=== PATIENT | male | born 1935 | race Caucasian/White ===

== ENCOUNTER 2017-12-26 10:46 | Emergency (ER) | payer MEDICARE, OTHER ==
[~2017-12-26] VITALS: Ht 170.2 cm; Wt 79.4 kg
[~2017-12-26 10:46] MED LIST: CADUET 10 MG-41 EACH PO; FAMOTIDINE20 MG PO; LISINOPRIL40 MG PO; METOPROLOL TART50 MG PO; PLAVIX300 MG PO; SEROQUEL100 MG PO; TEMAZEPAM15 MG PO; VITAMIN D31000 UNI1 PO
[2017-12-26] MEDS ORDERED: SODIUM CHLORIDE 0.9% 1000ML 1,000 ML IV STA (11:54)
[2017-12-26 13:22] LABS: BASOPHILS % 0.5 % (0.0-1.0); EOSINOPHILS # (AUTO) 0.1 (0.0-0.4); EOSINOPHILS % 1.1 % (0.0-6.0); HEMATOCRIT 42.9 % (38.2-49.6); HEMOGLOBIN 14.2 g/dL (14.0-18.0); LYMPHOCYTES # (AUTO) 1.5 (1.0-3.2); LYMPHOCYTES % 19.1 % (18.0-39.1); MEAN CORPUSCULAR HEMOGLOBIN 32.6 pg (28-32); MEAN CORPUSCULAR HGB CONC 33.1 g/dL (31-35); MEAN CORPUSCULAR VOLUME 98.6 fL (81-99); MONOCYTES # (AUTO) 0.5 (0.2-0.8); MONOCYTES % 6.9 % (4.4-11.3); NEUTROPHILS # (AUTO) 5.6 (2.1-6.9); NEUTROPHILS % 71.8 % (38.7-80.0); PLATELET COUNT 182 x10e3/uL (140-360); RED BLOOD COUNT 4.35 x10e6/uL (4.3-5.7); RED CELL DISTRIBUTION WIDTH 14.1 % (11.7-14.4)
[2017-12-26 13:36] LABS: ANION GAP 16.3 mmol/L (8-16); CALCIUM 10.2 mg/dL (8.4-10.2); CREATININE, SERUM 1.3 mg/dL (0.72-1.25); POTASSIUM 4.3 mmol/L (3.5-5.1)
[2017-12-26 13:41] LABS: BILIRUBIN,URINE NEGATIVE (NEGATIVE); CLARITY,URINE CLEAR (CLEAR); COLOR,URINE YELLOW (YELLOW); KETONES,URINE NEGATIVE (NEGATIVE); LEUKOCYTE ESTERASE ,URINE NEGATIVE (NEGATIVE); NITRITE,URINE NEGATIVE (NEGATIVE); PROTEIN,URINE DIPSTICK NEGATIVE (NEGATIVE); URINE UROBILINOGEN 0.2 mg/dL (0.2 - 1)
--- NOTE | 2017-12-26 13:44 | Diagnostic Imaging Report ---
EXAMINATION: CT of the abdomen and pelvis without contrast. TECHNIQUE: Spiral CT images of the abdomen and pelvis were performed from the lung bases to the lesser trochanters. No intravenous contrast was given per renal stone protocol. Coronal and sagittal reformatted images were obtained. COMPARISON: CT chest 09/04/2012 CLINICAL HISTORY:Back pain, difficulty urinating, right flank pain DISCUSSION: ABSENCE OF INTRAVENOUS CONTRAST DECREASES SENSITIVITY FOR DETECTION OF FOCAL LESIONS AND VASCULAR PATHOLOGY. ABDOMEN/PELVIS: LOWER THORAX: Stable partially visualized peripherally calcified large left ventricular aneurysm measuring approximately 10.7 x 9.0 cm. Linear opacities in the posterior left lower lobe, likely representing scarring. HEPATOBILIARY: No focal hepatic lesions. No intra or extrahepatic biliary ductal dilation. GALLBLADDER: Multiple radiopaque stones measuring approximately 4-5 mm are noted in the dependent portion of the gallbladder lumen. No wall thickening or pericholecystic fluid. SPLEEN: No splenomegaly. PANCREAS: No focal masses or ductal dilatation. ADRENALS: Slight interval decrease in size of 4.2 x 3.7 cm mass in the left adrenal gland, which contains dystrophic calcifications and scattered foci of macroscopic fat (series 3, image 36). Right adrenal gland unremarkable. KIDNEYS/URETERS: No renal or ureteral calculi, hydronephrosis or obstruction. No significant perinephric stranding. 1.5 cm partially exophytic fluid density simple cyst in the lateral interpolar left kidney (coronal image 59). Cortical scarring in the inferior pole of the left kidney. No other contour abnormalities. PELVIC ORGANS/BLADDER: Bladder is unremarkable. Prostate contains dystrophic calcifications. PERITONEUM/RETROPERITONEUM: No free air or fluid. LYMPH NODES: No intra-abdominal,retroperitoneal, pelvic or inguinal lymphadenopathy. VESSELS: Atherosclerotic calcification of the abdominal aorta, aortic branches and iliac vessels. Focal ectasia of the infrarenal abdominal aorta which measures approximately 2.9 x 2.9 cm (series 3, image 66). Questionable focal dissection in the infrarenal aorta (series 3, image 70). No periaortic hematoma. GI TRACT: No bowel dilation or evidence of obstruction. 2. Chronic inflammatory changes. Descending and sigmoid colon diverticulosis, without diverticulitis. BONES AND SOFT TISSUES: No aggressive lytic lesions. Multilevel degenerative disc changes in the lumbosacral spine, worse at L4-L5, with levoscoliosis. Facet hypertrophy L4-L5 and L5-S1. IMPRESSION: 1. No renal, ureteral or bladder calculi. No hydronephrosis or obstruction. Cortical scarring in the inferior pole of the left kidney. 2. Bladder is unremarkable, without focal lesions or wall thickening. 3. Stable partially visualized peripherally calcified large left ventricular aneurysm. 4. 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 5. Marked atherosclerotic disease of the abdominal aorta with focal ectasia of the infrarenal abdominal aorta and questionable focal dissection in this noncontrast exam. No acute periaortic hematoma is identified.. Signed by: Dr. Benito Hameed M.D. on 12/26/2017 1:40 PM
[2017-12-26 13:54] LABS: EPITHELIAL CELLS,URINE RARE /LPF; RBC,URINE 0-5 /HPF (0-5); WBC,URINE (MAN) 0-5 /HPF (0-5)
== END 2017-12-26 15:16 | disposition home or self-care (01) ==
LOC: ER 10:46
CPT/HCPCS: 36415; 74176; 80048; 81001; 85025; 87086; 99284; J7030

== ENCOUNTER 2018-08-09 11:52 | Observation (INO) | payer MEDICARE, OTHER ==
[~2018-08-09] VITALS: Ht 165.1 cm; Wt 66.0 kg
--- OUTSIDE RECORDS SUMMARY | 2018-08-09 11:55 | XMS REPORT ---
Author Author [facility] [place] Address Unknown Phone Unavailable Care Team Providers Care Day [employer] Youth Supervisor Name Role Phone Qasim GARCIA Unavailable Unavailable Problems This patient has no known problems. Allergies, Adverse Reactions, Alerts This patient has no known allergies or adverse reactions. Medications This patient has no known medications. Results Test Description Test Time Test Comments Text Results Atomic Results Result Comments CT ABDOMEN/PELVIS WO [place] [address] Patient Name: JOANNA NIEVES MR #: [id number] : 1935 Age/Sex: 82/M Req #: [id number] Adm Physician: Ordered by: RICHARD GARCIA MD Report #: [id number] Location: ER Room/Bed: Procedure: [id number] CT/CT ABDOMEN/PELVIS WO Exam Date: 12/26/17 Exam Time: 1214 REPORT STATUS: Signed EXAMINATION: CT of the abdomen and pelvis without contrast. TECHNIQUE: Spiral CT images of the abdomen and pelvis were performed from the lung bases to the lesser trochanters. No intravenous contrast was given per renal stone protocol. Coronal and sagittal reformatted images were obtained. COMPARISON: CT chest 09/04/2012 CLINICAL HISTORY:Back pain, difficulty urinating, right flank pain DISCUSSION: ABSENCE OF INTRAVENOUS CONTRAST DECREASES SENSITIVITY FOR DETECTION OF FOCAL LESIONS AND VASCULAR PATHOLOGY. ABDOMEN/PELVIS: LOWER THORAX: Stable partially visualized peripherally calcified large left ventricular aneurysm measuring approximately 10.7 x 9.0 cm. Linear opacities in the posterior left lower lobe, likely representing scarring. HEPATOBILIARY: No focal hepatic lesions. No intra or extrahepatic biliary ductal dilation. GALLBLADDER: Multiple radiopaque stones measuring approximately 4-5 mm are noted in the dependent portion of the gallbladder lumen. No wall thickening or pericholecystic fluid. SPLEEN: No splenomegaly. PANCREAS: No focal masses or ductal dilatation. ADRENALS: Slight interval decrease in size of 4.2 x 3.7 cm mass in the left adrenal gland, which contains dystrophic calcifications and scattered foci of macroscopic fat (series 3, image 36). Right adrenal gland unremarkable. KIDNEYS/URETERS: No renal or ureteral calculi, hydronephrosis or obstruction. No significant perinephric stranding. 1.5 cm partially exophytic fluid density simple cyst in the lateral interpolar left kidney (coronal image 59). Cortical scarring in the inferior pole of the left kidney. No other contour abnormalities. PELVIC ORGANS/BLADDER: Bladder is unremarkable. Prostate contains dystrophic calcifications. PERITONEUM/RETROPERITONEUM: No free air or fluid. LYMPH NODES: No intra-abdominal,retroperitoneal, pelvic or inguinal lymphadenopathy. VESSELS: Atherosclerotic calcification of the abdominal aorta, aortic branches and iliac vessels. Focal ectasia of the infrarenal abdominal aorta which measures approximately 2.9 x 2.9 cm (series 3, image 66). Questionable focal dissection in the infrarenal aorta (series 3, image 70). No periaortic hematoma. GI TRACT: No bowel dilation or evidence of obstruction. 2. Chronic inflammatory changes. Descending and sigmoid colon diverticulosis, without diverticulitis. BONES AND SOFT TISSUES: No aggressive lytic lesions. Multilevel degenerative disc changes in the lumbosacral spine, worse at L4-L5, with levoscoliosis. Facet hypertrophy L4-L5 and L5-S1. IMPRESSION: 1. No renal, ureteral or bladder calculi. No hydronephrosis or obstruction. Cortical scarring in the inferior pole of the left kidney. 2. Bladder is unremarkable, without focal lesions or wall thickening. 3. Stable partially visualized peripherally calcified large left ventricular aneurysm. 4. 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 5. Marked atherosclerotic disease of the abdominal aorta with focal ectasia of the infrarenal abdominal aorta and questionable focal dissection in this noncontrast exam. No acute periaortic hematoma is identified.. Signed by: Dr. Yandel Miranda M.D. on 12/26/2017 1:40 PM Dictated By: YANDEL MIRANDA MD [id number] Transcribed By: VIVI on 12/26/17 1340 COPY TO: RICHARD GARCIA MD
[2018-08-09 14:55] LABS: BASOPHILS % 0.2 % (0.0-1.0); EOSINOPHILS % 0.4 % (0.0-6.0); HEMOGLOBIN 11.9 g/dL (14.0-18.0); LYMPHOCYTES # (AUTO) 1.2 (1.0-3.2); LYMPHOCYTES % 12.4 % (18.0-39.1); MEAN CORPUSCULAR HGB CONC 33.1 g/dL (31-35); MEAN CORPUSCULAR VOLUME 99.7 fL (81-99); MONOCYTES # (AUTO) 0.7 (0.2-0.8); MONOCYTES % 7.1 % (4.4-11.3); NEUTROPHILS # (AUTO) 7.7 (2.1-6.9); NEUTROPHILS % 79.2 % (38.7-80.0); PLATELET COUNT 306 x10e3/uL (140-360); RED BLOOD COUNT 3.61 x10e6/uL (4.3-5.7); RED CELL DISTRIBUTION WIDTH 15.4 % (11.7-14.4)
[2018-08-09 15:14] LABS: ALBUMIN/GLOBULIN RATIO 0.6 (0.8-2.0); ANION GAP 15.3 mmol/L (8-16); CALCIUM 9.6 mg/dL (8.4-10.2); CREATININE, SERUM 1.2 mg/dL (0.72-1.25); POTASSIUM 4.3 mmol/L (3.5-5.1)
--- NOTE | 2018-08-09 18:05 | NUR ---
Pt had an episode of diarrhea. Pt cleaned up and new diaper applied.
--- NOTE | 2018-08-09 18:20 | Diagnostic Imaging Report ---
EXAM: CT Abdomen and Pelvis WITHOUT contrast INDICATION: ^right sided abdominal pain ^[id number] ^1640 ^Y COMPARISON: CT dated 12/26/2017 TECHNIQUE: Abdomen and pelvis were scanned utilizing a multidetector helical scanner from the lung base to the pubic symphysis without administration of IV contrast. Absence of intravenous contrast decreases sensitivity for detection of focal lesions and vascular pathology. Coronal and sagittal reformations were obtained. Routine protocol was performed. IV CONTRAST: None ORAL CONTRAST: Readicat COMPLICATIONS: None RADIATION DOSE: Total DLP: 337.51 mGy*cm Estimated effective dose: (DLP x 0.015 x size factor) mSv CTDIvol has been reviewed. It is below the limits set by the Radiation Protocol Committee (RPC). FINDINGS: LINES and TUBES: None. LOWER THORAX: Not significantly changed peripherally calcified large left ventricular aneurysm, measuring approximately 10.3 x 8.6 cm. HEPATOBILIARY: Mildly nodular hepatic contour, suggestive of cirrhotic changes. Limited for evaluation of hepatic parenchyma without intravenous contrast. No biliary ductal dilation. GALLBLADDER: Multiple dependent small gallstones. No wall thickening. SPLEEN: No splenomegaly. PANCREAS: No focal masses or ductal dilatation. ADRENALS: 3.9 x 3.7 cm heterogeneous fat-containing left adrenal mass, previously 4.2 x 3.7 cm. There is a new right adrenal mass measuring 3.4 x 2.3 cm (series 2, image 20). KIDNEYS/URETERS: No hydronephrosis. Limited for evaluation of renal parenchyma without intravenous contrast. Left renal inferior pole hypodensity is again seen. No stones. GI TRACT: No abnormal distention, wall thickening, or evidence of bowel obstruction. Few scattered colonic diverticula without evidence of diverticulitis. Appendix is normal. PELVIC ORGANS/BLADDER: Bladder is under distended, limiting evaluation. Prostate calcifications. LYMPH NODES: No lymphadenopathy. VESSELS: There is severe atherosclerotic disease in the aorta and major arterial branches. Unchanged focal infrarenal abdominal aortic ectasia, measuring 2.9 cm. There additional areas of small focal ectasia. Descending thoracic aorta measures 4.1 cm. PERITONEUM / RETROPERITONEUM: No free air or fluid. BONES: Multilevel degenerative changes of spine. Right superior ramus sclerotic focus, likely bone island. SOFT TISSUES: Unremarkable. IMPRESSION: 1. Unchanged or slightly decreased left adrenal mass, probably a myelolipoma. 2. New right adrenal lesion, measuring 3.4 cm which is indeterminate. Recommend nonurgent adrenal mass protocol CT to characterize. 3. Contour nodularity of the liver, suggestive of cirrhotic changes. 4. Cholelithiasis without evidence of cholecystitis. 5. Severe atherosclerotic disease of aorta with multifocal areas of ectasia. Full evaluation is limited without intravenous contrast. 6. Not significantly changed peripherally calcified left ventricular aneurysm. 7. No nephrolithiasis or evidence of obstructive urolithiasis. Signed by: Dr. Alden Horn MD on 08/09/2018 6:17 PM
[2018-08-09] MEDS ORDERED: MORPHINE SULFATE 2 MG/ML SYR IV PRN (19:30)
--- NOTE | 2018-08-09 20:01 | NUR ---
RADIOLOGY CALLED TO ENSURE PATIENT IS KEPT NPO 4HOURS PRIOR TO PROCEDURE, ORDERED NPO AFTER 12MN AND NO PAIN MEDS AFTER MIDNIGHT DUE TO HIDA SCAN IN THE AM 0730. INFORMED THE ER NURSE TAKING CARE OF HIM AND WAS TOLD TO MAKE A NOTE
[2018-08-10] MEDS: D5.45%NS/KCL 20MEQ 1,000 ML IV SCH ×3 (00:04→22:28)
[2018-08-10] MEDS: PIPER-TAZ 3.375 GM / NS 50ML IV SCH ×5 (00:04→16:02)
[2018-08-10] MEDS: MORPHINE SULFATE INJ 4 MG/ML INJ IV PRN ×3 (00:10→16:30)
[2018-08-10] MEDS: ONDANSETRON HCL INJ 2 MG/ML VIAL IV PRN ×2 (00:10→12:37)
[2018-08-10 05:48] LABS: CLARITY,URINE CLEAR (CLEAR); COLOR,URINE YELLOW (YELLOW)
[2018-08-10 05:49] LABS: BILIRUBIN,URINE NEGATIVE (NEGATIVE); KETONES,URINE TRACE (NEGATIVE); LEUKOCYTE ESTERASE ,URINE NEGATIVE (NEGATIVE); NITRITE,URINE NEGATIVE (NEGATIVE); PROTEIN,URINE DIPSTICK NEGATIVE (NEGATIVE); URINE UROBILINOGEN 0.2 mg/dL (0.2 - 1)
[2018-08-10 05:52] LABS: EPITHELIAL CELLS,URINE RARE /LPF; RBC,URINE 0-5 /HPF (0-5); WBC,URINE (MAN) 0-5 /HPF (0-5)
[2018-08-10 06:11] LABS: BASOPHILS % 0.4 % (0.0-1.0); EOSINOPHILS % 0.2 % (0.0-6.0); HEMATOCRIT 34.1 % (38.2-49.6); HEMOGLOBIN 11.4 g/dL (14.0-18.0); LYMPHOCYTES # (AUTO) 0.9 (1.0-3.2); LYMPHOCYTES % 9.3 % (18.0-39.1); MEAN CORPUSCULAR HEMOGLOBIN 32.5 pg (28-32); MEAN CORPUSCULAR HGB CONC 33.4 g/dL (31-35); MEAN CORPUSCULAR VOLUME 97.2 fL (81-99); MONOCYTES # (AUTO) 0.8 (0.2-0.8); NEUTROPHILS % 81.3 % (38.7-80.0); PLATELET COUNT 267 x10e3/uL (140-360); RED BLOOD COUNT 3.51 x10e6/uL (4.3-5.7); RED CELL DISTRIBUTION WIDTH 15.5 % (11.7-14.4)
[2018-08-10 06:43] LABS: ALBUMIN 2.7 g/dL (3.5-5.0); ALBUMIN/GLOBULIN RATIO 0.7 (0.8-2.0); ANION GAP 15.1 mmol/L (8-16); CREATININE, SERUM 1.28 mg/dL (0.72-1.25); POTASSIUM 4.1 mmol/L (3.5-5.1)
[2018-08-10 07:34] VITALS: BP 168/90
--- NOTE | 2018-08-10 09:45 | NUR ---
patient to [employer] at this time.
--- NOTE | 2018-08-10 11:21 | Diagnostic Imaging Report ---
Hepatobiliary Scan with Gallbladder Ejection Fraction Clinical information: 83 M with abdominal pain Technique: Following intravenous administration of 6.8 millicuries of Tc-99m mebrofenin, dynamic images of the abdomen in the anterior projection were obtained through 60 minutes. Sincalide (CCK analog) 1.5 micrograms was administered intravenously over 30 minutes with additional imaging for determination of gallbladder ejection fraction. Discussion: Perfusion of the liver is normal. Extraction of tracer by the liver parenchyma is normal. Appearance of tracer in the biliary tract id moderately delayed. The gallbladder begins to fill at 20 minutes post injection of tracer and fills adequately. Tracer is seen in the small bowel during the sincalide infusion. There is no contractile response by the gallbladder to the pharmacologic dose of sincalide. No emptying of the gallbladder occurs during the 30 minute infusion. Impression: 1. Filling of the gallbladder excludes acute cystic duct obstruction/acute cholecystitis. 2. The gallbladder ejection fraction is undefined as there is no emptying of the gallbladder during the infusion of sincalide. This absence of a contractile response to sincalide supports the clinical diagnosis of chronic cholecystitis/gallbladder dyskinesia. Signed by: Dr. Helen Israel M.D. on 08/10/2018 11:18 AM
--- NOTE | 2018-08-10 11:58 | NUR ---
patient transferred to OBS. report called to Katie PERALTA. Dr Chong notified of elevated BP and will visit patient shortly. family at .
[2018-08-10 12:00] VITALS: BP 147/103
--- NOTE | 2018-08-10 12:00 | NUR ---
Received pt from ER at this time. Pt is axo3 and able to verbalize needs. Pt is hard of hearing. Denies any pain at this time. Pt is on IVF at 75ml/hr and well tolerated. 0 s/s of acute distress noted.
[2018-08-10 12:51] VITALS: BP 147/103
--- NOTE | 2018-08-10 16:30 | NUR ---
Pt has reaction to after IV antibiotic was hung. Pt is complaining of heat and warm sensation throughout body and has red welps on bilateral arms and back of the thighs. Pt has right ear is reddened as well. Notified Hilary Chong and received orders to stop Zosyn and start pt on Cefepime 1g q12H.
[2018-08-10] MEDS: METOPROLOL TARTRATE 50 MG TAB PO SCH (16:42)
[2018-08-10] MEDS: FAMOTIDINE 20 MG TAB PO SCH (16:43)
[2018-08-10 16:44] VITALS: BP 178/88
[2018-08-10 20:00] VITALS: BP 179/95
[2018-08-10] MEDS ORDERED: CEFEPIME HCL 1 GM VIAL IV SCH (20:00)
[2018-08-10] MEDS: CEFEPIME 1GM/NS 0.9% 50 ML 50 ML IV SCH (20:25)
[2018-08-10] MEDS: QUETIAPINE FUMARATE 100 MG TAB PO SCH (20:25)
[2018-08-10] MEDS: TEMAZEPAM 15 MG CAP PO SCH (20:25)
[2018-08-10] MEDS ORDERED: DIPHENHYDRAMINE HCL INJ 50 MG/ML VIAL IV ONE (20:30)
[2018-08-10 21:39] LABS: FERRITIN 1450.15 ng/mL (21.81-274.66)
--- NOTE | 2018-08-10 22:00 | NUR ---
Lita Watt asked me to do a bladder scanner on patient, due to decrease urine output and urine retention. Bladder was scanned and the urine volume was 430ML. MD was notified and order for an indwelling lucas catheter was given.
[2018-08-11] VITALS (9 sets, daily range): BP systolic 113–169; BP diastolic 60–90
[2018-08-11 05:29] LABS: BASOPHILS % 0.2 % (0.0-1.0); EOSINOPHILS % 0.3 % (0.0-6.0); HEMATOCRIT 30.9 % (38.2-49.6); HEMOGLOBIN 10.2 g/dL (14.0-18.0); LYMPHOCYTES # (AUTO) 1.2 (1.0-3.2); LYMPHOCYTES % 12.1 % (18.0-39.1); MEAN CORPUSCULAR HEMOGLOBIN 32.7 pg (28-32); MONOCYTES # (AUTO) 1.1 (0.2-0.8); MONOCYTES % 10.6 % (4.4-11.3); NEUTROPHILS # (AUTO) 7.7 (2.1-6.9); PLATELET COUNT 224 x10e3/uL (140-360); RED BLOOD COUNT 3.12 x10e6/uL (4.3-5.7); RED CELL DISTRIBUTION WIDTH 15.5 % (11.7-14.4)
[2018-08-11 07:02] LABS: ALANINE AMINOTRANSFERASE 92 IU/L (0-55); ALBUMIN 2.3 g/dL (3.5-5.0); ALBUMIN/GLOBULIN RATIO 0.7 (0.8-2.0); ALKALINE PHOSPHATASE 235 IU/L (40-150); ANION GAP 13.2 mmol/L (8-16); BLOOD UREA NITROGEN 14 mg/dL (7-26); BUN/CREATININE RATIO 13 (6-25); CALCIUM 8.4 mg/dL (8.4-10.2); CARBON DIOXIDE 20 mmol/L (22-29); CHLORIDE 105 mmol/L (98-107); CREATININE, SERUM 1.06 mg/dL (0.72-1.25); EST GLOMERULAR FILTRATION RATE > 60 ML/MIN (60-); GLUCOSE 127 mg/dL (74-118); POTASSIUM 4.2 mmol/L (3.5-5.1); SODIUM 134 mmol/L (136-145)
[2018-08-11] MEDS: CEFEPIME 1GM/NS 0.9% 50 ML 50 ML IV SCH ×2 (07:52→19:27)
--- NOTE | 2018-08-11 08:08 | NUR ---
spoke with MRI about transport. patient to be picked up soon.
[2018-08-11] MEDS: METOPROLOL TARTRATE 50 MG TAB PO SCH ×2 (10:16→16:37)
[2018-08-11] MEDS: FAMOTIDINE 20 MG TAB PO SCH ×2 (10:16→16:14)
--- NOTE | 2018-08-11 11:08 | NUR ---
SOCIAL WORK INITIAL ASSESSMENT Physician Primary Care Sports Medicine to bedside to discuss plan of care with patient/family. CM/SW role and care transitions discussed. Anticipated discharge plan discussed along with duration of care. CM/SW discussed patients right to make decisions in care. CM/SW work hours given. Patient lives: HOUSE WITH DAUGHTER Admit/Transfer: VIA HOME POA/Emergency contact: MIRYAM [phone] Current/Previous Home Health: NONE PCP/Follow-up Care: MAXIMO WANT TO CHANGE TO [facility] Current/Previous DME: HAVE ALL BUT NOT CURRENTLY USING Other Services: NONE Employment Status: RETIRED Areas of Concerns: NONE Referral Needs: NONE Education Needs: NONE IMM/ELI given and signed (if applicable): ELI Goal for discharge: RETURN HOME INDEPENDENTLY CM/SW left business card at the bedside with contact information. Name and number was also written on the patients whiteboard. Patient verbalized understanding of discussion. CM will follow-up with ongoing discharge and transition of care needs.
--- NOTE | 2018-08-11 14:26 | Diagnostic Imaging Report ---
EXAM: MRI of the abdomen with and without contrast. INDICATION: Elevated LFTs. Abdominal pain. COMPARISON: None. Correlation with CT abdomen dated 07/10/18. TECHNIQUE: Multiplanar, multisequence MRCP was performed, with sequences including coronal turbo spin-echo T1-weighted scans, [facility] MRCP scans, coronal spin, coronal MPR 2, SMRCP 3D HR, [facility] MRCP FIELDS. Discussion: Examination limited as the inferior most liver was not included on the axial scans. LOWER THORAX: Redemonstration of a partially calcified left ventricular aneurysm. HEPATOBILIARY: Cirrhotic hepatic morphology. There are numerous variously-sized mildly T2 hyperintense lesions scattered throughout the entire hepatic parenchyma with more focal abnormal signal in the inferior right hepatic lobe with a possible ill-defined mass measuring up to 8.8 cm craniocaudal dimension on coronal image 24 series 10; the findings are highly concerning for multifocal hepatocellular carcinoma not well evaluated in this examination without contrast. GALLBLADDER: There are a few calculi within the gallbladder lumen. No wall thickening. Suboptimal MRCP sequences demonstrate no defect within the common hepatic duct, and proximal to mid common bile duct. SPLEEN: No splenomegaly. PANCREAS: No focal masses or ductal dilatation. ADRENALS: No adrenal nodules KIDNEYS/URETERS: Kidneys enhance symmetrically. No hydronephrosis. 1.9 cm T2 hyperintense lesion exophytic of the lower pole of the left kidney laterally with thin septation suggestive of mildly complex cyst. A couple of additional subcentimeter T2 hyperintense lesions scattered throughout the renal cortex bilaterally are too small to be characterize, most suggestive of small cysts. No stones. GI TRACT: No abnormal distention, wall thickening, or evidence of bowel obstruction. LYMPH NODES: No lymphadenopathy. VESSELS: Atherosclerotic plaque throughout the abdominal aorta. PERITONEUM / RETROPERITONEUM: No free air or fluid. BONES: T2 hyperintense, T1 lesions in the L2, L3 and possibly L4 vertebral bodies suggestive of metastatic foci. There is also hyperintense signal in the mid thoracic vertebral body partially visualized also concerning for metastatic focus. SOFT TISSUES: Unremarkable. IMPRESSION: 1. Hepatic cirrhosis. Numerous T2 hyperintense lesions scattered throughout the hepatic parenchyma, the largest estimated at 8.8 cm in the inferior right hepatic lobe suggestive of multifocal hepatocellular carcinoma not completely characterized due to the lack of contrast. Recommend further evaluation with MRI abdomen liver mass protocol without and with contrast. 2. Cholelithiasis. No choledocholithiasis. 3. Lumbar and possibly thoracic osseous lesions concerning for metastasis. 4. Large calcified left ventricular aneurysm again observed. Signed by: Dr. Pj Keita M.D. on 08/11/2018 2:23 PM
--- NOTE | 2018-08-11 15:16 | Diagnostic Imaging Report ---
EXAMINATION: CHEST 2 VIEWS INDICATION: Shortness of breath. COMPARISON: CT abdomen/pelvis 08/09/2018. FINDINGS: TUBES and LINES: None. LUNGS: Lungs are well inflated. Mild patchy bibasilar opacities, likely atelectasis. There is no evidence of pneumonia or pulmonary edema. PLEURA: No pleural effusion or pneumothorax. HEART AND MEDIASTINUM: The cardiomediastinal silhouette is unchanged. Again noted is a large peripherally calcified structure overlying left ventricle, consistent with ventricular aneurysm. BONES AND SOFT TISSUES: No acute osseous lesion. Soft tissues are unremarkable. Status post median sternotomy. UPPER ABDOMEN: No free air under the diaphragm. IMPRESSION: No acute radiographic abnormality. Large peripherally calcified ventricular aneurysm, as seen on prior cross-sectional imaging studies Signed by: Dr. Shayna Rust MD on 08/11/2018 3:12 PM
[2018-08-11] MEDS: D5.45%NS/KCL 20MEQ 1,000 ML IV SCH ×2 (16:07→20:19)
[2018-08-11] MEDS ORDERED: ACETAMINOPHEN 325 MG TAB PO PRN (16:15)
[2018-08-11] MEDS: TEMAZEPAM 15 MG CAP PO SCH (20:18)
[2018-08-11] MEDS: QUETIAPINE FUMARATE 100 MG TAB PO SCH (20:18)
[2018-08-12 04:34] VITALS: BP 139/67
[2018-08-12 05:07] LABS: BASOPHILS % 0.4 % (0.0-1.0); EOSINOPHILS # (AUTO) 0.2 (0.0-0.4); HEMATOCRIT 30.7 % (38.2-49.6); HEMOGLOBIN 10.1 g/dL (14.0-18.0); LYMPHOCYTES # (AUTO) 1.4 (1.0-3.2); LYMPHOCYTES % 17.5 % (18.0-39.1); MEAN CORPUSCULAR HEMOGLOBIN 33.1 pg (28-32); MEAN CORPUSCULAR HGB CONC 32.9 g/dL (31-35); MEAN CORPUSCULAR VOLUME 100.7 fL (81-99); MONOCYTES # (AUTO) 0.8 (0.2-0.8); MONOCYTES % 9.6 % (4.4-11.3); NEUTROPHILS # (AUTO) 5.7 (2.1-6.9); PLATELET COUNT 215 x10e3/uL (140-360); RED BLOOD COUNT 3.05 x10e6/uL (4.3-5.7); RED CELL DISTRIBUTION WIDTH 15.8 % (11.7-14.4)
[2018-08-12 05:31] LABS: ANION GAP 9.9 mmol/L (8-16); BLOOD UREA NITROGEN 11 mg/dL (7-26); BUN/CREATININE RATIO 12 (6-25); CALCIUM 8.3 mg/dL (8.4-10.2); CARBON DIOXIDE 22 mmol/L (22-29); CHLORIDE 107 mmol/L (98-107); CREATININE, SERUM 0.92 mg/dL (0.72-1.25); EST GLOMERULAR FILTRATION RATE > 60 ML/MIN (60-); GLUCOSE 107 mg/dL (74-118); POTASSIUM 3.9 mmol/L (3.5-5.1); SODIUM 135 mmol/L (136-145)
[2018-08-12] MEDS: MORPHINE SULFATE INJ 4 MG/ML INJ IV PRN ×2 (07:17→13:08)
[2018-08-12] MEDS: CEFEPIME 1GM/NS 0.9% 50 ML 50 ML IV SCH ×2 (07:17→20:00)
[2018-08-12 08:00] VITALS: BP 91/56
[2018-08-12] MEDS: METOPROLOL TARTRATE 50 MG TAB PO SCH ×2 (09:00→16:20)
[2018-08-12] MEDS ORDERED: HYDROMORPHONE 2MG/ML 2 MG/ML ML IV PRN (09:30)
--- NOTE | 2018-08-12 09:39 | NUR ---
patient states that pain meds not helping. Dr Chong notified and dilaudid added to regimen. Patient has made himself DNR and family is discussing hospice. BP low and patient and family notified that more pain med could cause a decrease in stability up to and including . family and patient to notify me when they want the dilaudid given.
[2018-08-12] MEDS: FAMOTIDINE 20 MG TAB PO SCH ×2 (10:53→16:46)
--- NOTE | 2018-08-12 11:36 | NUR ---
unable to acquire BP and patient very hypothermic. unable to obtain temp. dilaudid pulled but no given. patient is DNR and instructed family to spend time with patient as situation seems grave at this time. Dr Chong visitedc and talked with family. hospice eval entered.
--- NOTE | 2018-08-12 13:59 | NUR ---
SPOKE WITH DAUGHTER AND FAMILY ABOUT HOSPICE CHOICE, SIGNED FOR VANTAGE FILED IN CHART AND GAVE COPY TO PATIENT FAX CLINICALS TO [phone] SPOKE WITH GUILLERMO ARMENDARIZ THE REP SHE WILL CONTACT FAMILY AND SET UP FOR DISCHARGE HOME WITH HOSPICE SERVICES SOON CONSENTS ARE SIGNED.
[2018-08-12] MEDS: D5.45%NS/KCL 20MEQ 1,000 ML IV SCH ×2 (14:02→20:15)
[2018-08-12 16:23] VITALS: BP 82/53
[2018-08-12 18:18] VITALS: BP 82/53
--- NOTE | 2018-08-12 19:10 | NUR ---
REPORT RECEIVED FROM OFF GOING NURSE, PT RESTING IN BED ALERT AND MILDLY LETHARGIC, PT COHERENTLY COMMUNICATES WITH FAMILY AND STAFF, FAMILY AT BEDSIDE, PT DENIES NEEDS, INDWELLING GARCIA NOTED TO BEDSIDE, BED LOCKED AND LOW, INSTRUCTED TO CALL WITH NEEDS
[2018-08-12] MEDS: QUETIAPINE FUMARATE 100 MG TAB PO SCH (20:11)
[2018-08-12] MEDS: TEMAZEPAM 15 MG CAP PO SCH (20:15)
--- NOTE | 2018-08-12 21:57 | NUR ---
PRN GIVEN FOR PAIN, GRAND DAUGHTER AT BEDSIDE, CALL LIGHT IN REACH ,PT BEING MONITORED
--- NOTE | 2018-08-13 00:40 | NUR ---
PT REPOSITIONED FOR COMFORT, HOB ELEVATED, SHALLOW BREATHING NOTED, PT GIVEN O2 NC 2L GIVEN FOR RESPIRATION COMFORT, PT RESTING IN BED WITH EYES CLOSED AND MOUTH OPEN, RISE AND FALL OF CHEST RESPIRATIONS NOTED, GRAND DAUGHTER AT BEDSIDE
--- NOTE | 2018-08-13 00:46 | NUR ---
GRAND DAUGHTER CALLED STATION DUE TO CONCERNS OF PTs BREATHING, PT NOTED, WITH EYES CLOSED, NO PULSE PALPABLE NOR AUDIBLE, MD/S TO BE NOTIFIED, PTs SKIN IS PALE AND COOL TO TOUCH, AWAITING MD
--- NOTE | 2018-08-13 00:53 | NUR ---
MD Nasim MAURICIO INFORMED OF PTs PASSING, INFORMED THAT ER MD WILL INFORMED DUE TO THE NEEDS OF PRONOUNCING
--- NOTE | 2018-08-13 00:57 | NUR ---
ER PRONOUNCED, PT AT THIS TIME
--- NOTE | 2018-08-13 01:08 | NUR ---
FAMILY INFORMED OF PTs CONDITION
--- NOTE | 2018-08-13 01:36 | NUR ---
SPOKE TO DUNIA BUSBY WITH [facility] [phone]. SAID THAT MANAGER PATHOLOGY WILL ARRIVE WITHIN 1 TO 1 1/2 HOURS. SECURITY ALSO NOTIFIED. PM NURSE AWARE OF ALL OF THE ABOVE.
--- NOTE | 2018-08-13 03:14 | NUR ---
PT DEPARTING UNIT WITH HOME, FAMILY IN NEAR BY WAITING ROOM , NO QUESTIONS ASK
== END 2018-08-13 03:14 | disposition expired ==
LOC: ER 11:52 → ERHOLD 20:53 → IMCU 08-10 12:10
DX: C22.0 Liver cell carcinoma (principal); K80.21 Calculus of gallbladder without cholecystitis with obstruction; C79.51 Secondary malignant neoplasm of bone; I25.10 Atherosclerotic heart disease of native coronary artery without angina pectoris; J44.9 Chronic obstructive pulmonary disease, unspecified; K21.9 Gastro-esophageal reflux disease without esophagitis; Z95.1 Presence of aortocoronary bypass graft; D64.9 Anemia, unspecified; K74.60 Unspecified cirrhosis of liver; I25.2 Old myocardial infarction; Z86.73 Personal history of transient ischemic attack (TIA), and cerebral infarction without residual deficits; Z88.8 Allergy status to other drugs, medicaments and biological substances; Z88.1 Allergy status to other antibiotic agents; Z91.041 Radiographic dye allergy status; R19.7 Diarrhea, unspecified; I71.4 Abdominal aortic aneurysm, without rupture; Z87.891 Personal history of nicotine dependence; R94.5 Abnormal results of liver function studies; R16.0 Hepatomegaly, not elsewhere classified; K82.8 Other specified diseases of gallbladder; Z66 Do not resuscitate
CPT/HCPCS: 36415 ×4; 71046; 74176; 74181; 78227; 80048; 80053 ×3; 81001; 82105; 82140; 82150 ×2; 82607; 82728; 83540; 83690 ×2; 84466; 85025 ×4; 85045; 87086; 96361; 96366; 96374; 96375; 99284; A9537; G0378 ×5; J0692 ×3; J1170; J1200; J2270 ×3; J2405 ×2; J2543 ×2